=== PATIENT | female | born 1980 | race Caucasian/White ===

== ENCOUNTER 2023-12-01 11:28 | Inpatient (IN) | payer OTHER ==
[2023-12-01] MEDS ORDERED: Ketorolac Tromethamine 30 MG (1 mL) VIAL ONE (11:45)
[2023-12-01] MEDS ORDERED: Morphine 4 MG/ML VIAL ONE ×2 (12:23→16:38)
[2023-12-01] MEDS ORDERED: CEFAZOLIN 2 GM in Sodium Chloride 0.9% 100 ML IVPB SCH (15:00)
[2023-12-01 16:30] LABS: #Eosinphils 0.1 thou/uL (0.0-0.7); #Monocytes 0.9 thou/uL (0.11-0.59); #Neutrophils 7.5 thou/uL (1.40-6.50); %Basophils 0.2 % (0.0-1.0); %Eosinophils 0.6 % (0.0-10.0); %Monocytes 8.2 % (0.0-10.0); %Neutrophils 72.7 % (42.0-75.0); Hemoglobin 11.6 g/dL (12.0-16.0); Mean Corpuscular HGB CONC 33.1 g/dL (32.0-36.0); Mean Corpuscular Hemoglobin 28.9 pg (27.0-31.0); Mean Corpuscular Volume 87.3 fl (78.0-98.0); Mean Platelet Volume 9.3 fL (7.4-10.4); Platelet Count 343 10x3/uL (130-400); RBC Distribution Width 12.4 % (11.5-14.5); Red Blood Cell (RBC) Count 4.01 mill/uL (4.20-5.40); White Blood Cell (WBC) Count 10.3 10x3/uL (4.8-10.8)
[2023-12-01 16:45] LABS: PTT 29.3 sec (22.9-36.1); Prothrombin Time 12.9 sec (12.0-14.7)
[2023-12-01 16:51] LABS: Anion Gap 13 mmol/L (10-20); BUN (Urea Nitrogen) 11 mg/dL (7.0-18.7); Calc. Creatinine Clearance 0 mL/min (70-130); Calcium 9.3 mg/dL (7.8-10.44); Carbon Dioxide 27 mmol/L (22-29); Chloride 101 mmol/L (98-107); Estimated GFR 107; Glucose 95 mg/dL (70-105); Sodium 137 mmol/L (136-145)
[2023-12-01] MEDS ORDERED: Glucagon 1 MG/ML KIT IM PRN (17:47)
[2023-12-01] MEDS ORDERED: Dextrose 50% Abboject 50 ML SYRINGE SLOW IVP PRN (17:47)
[2023-12-01] MEDS ORDERED: Dextrose 5% in Water 1,000 ML IV PRN (17:47)
[2023-12-01 17:55] VITALS: BMI 38.0
[2023-12-01] MEDS ORDERED: Morphine 4 MG/ML VIAL SLOW IVP PRN (17:56)
[2023-12-01] MEDS ORDERED: Ondansetron ODT 4 MG TAB PO PRN (17:59)
[2023-12-01] MEDS ORDERED: Ondansetron PF 4 MG/2 ML Vial IVP PRN ×2 (17:59→18:00)
[2023-12-01] MEDS ORDERED: Ondansetron ODT 4 MG TAB SL PRN (18:00)
[2023-12-01] MEDS: Ibuprofen 200 MG TAB PO SCH (18:31)
[2023-12-01] MEDS: Acetaminophen 500 MG TAB PO SCH (18:32)
[2023-12-01] MEDS: TETANUS, DIPHTHERIA TOX,ADULT (TDVAX) 0.5 ML VIAL IM ONE (18:33)
[2023-12-01] MEDS: traMADol HCl 50 MG TAB PO SCH (18:33)
[2023-12-01] MEDS: Sodium Chloride 0.9% 1,000 ML IV SCH (18:33)
[2023-12-01] MEDS: Famotidine 20 MG TAB PO SCH (20:34)
[2023-12-01] MEDS: Gabapentin 300 MG CAP PO SCH (20:34)
[2023-12-01] MEDS: Morphine 2 MG/ML VIAL SLOW IVP PRN (20:35)
[2023-12-01] MEDS: Lactated Ringer's 1,000 ML IV SCH (23:03)
[2023-12-02] MEDS ORDERED: traMADol HCl 50 MG TAB ONE (11:39)
[2023-12-02] MEDS ORDERED: Acetaminophen 500 MG TAB ONE (11:39)
[2023-12-02] MEDS ORDERED: fentaNYL PF 100 MCG/2 ML SYRINGE ONE (12:09)
[2023-12-02] MEDS ORDERED: PROPOFOL 20 ML ONE (12:09)
[2023-12-02] MEDS ORDERED: Lidocaine 1% PF 5 ML VIAL ONE (12:10)
[2023-12-02] MEDS ORDERED: Sodium Chloride 0.9% 100 ML ONE (12:15)
[2023-12-02] MEDS ORDERED: CEFAZOLIN 2 GM VIAL ONE (12:15)
[2023-12-02] MEDS ORDERED: Midazolam HCl 2 mg/2 ml Vial ONE (12:21)
[2023-12-02] MEDS ORDERED: fentaNYL 50 mcg/mL 1 mL Vial ONE ×3 (12:21→15:43)
[2023-12-02] MEDS ORDERED: Bupivacaine PF 0.5% 30 ML VIAL ONE (12:51)
[2023-12-02] MEDS ORDERED: PHENYLEPHRINE-NS 100 MCG/ML 10 ML SYRINGE ONE (13:14)
[2023-12-02] MEDS ORDERED: Bupivacaine HCl 0.5%/Epinephrine 1:200,000/PF 30 ml Vial ONE (13:14)
[2023-12-02] MEDS ORDERED: ePHEDrine Sulfate 50 MG/10 ML VIAL ONE (13:21)
[2023-12-02] MEDS ORDERED: HYDROmorphone 2 MG/ML VIAL SLOW IVP PRN (13:40)
[2023-12-02] MEDS ORDERED: Ondansetron HCl/PF 4 MG/2 ML Vial IVP PRN (13:40)
[2023-12-02] MEDS ORDERED: Promethazine HCl 25 MG/ML VIAL IM PRN (13:40)
[2023-12-02] MEDS ORDERED: Ketorolac Tromethamine 30 MG (1 mL) VIAL ONE (13:49)
[2023-12-02] MEDS ORDERED: Ondansetron PF 4 MG/2 ML Vial ONE (13:49)
[2023-12-02] MEDS ORDERED: Dexamethasone 4 mg/ml Vial ONE (13:49)
[2023-12-02] MEDS: CEFAZOLIN 2 GM in Sodium Chloride 0.9% 100 ML IVPB SCH (21:50)
[2023-12-03] MEDS: Acetaminophen 500 MG TAB PO SCH (01:15)
[2023-12-03] MEDS: traMADol HCl 50 MG TAB PO PRN (10:14)
[2023-12-03] MEDS ORDERED: Morphine 4 MG/ML VIAL SLOW IVP SCH (14:15)
[2023-12-03] MEDS: Polyethylene Glycol 3350 17 GM Packet PO SCH (14:18)
[2023-12-03] MEDS: Morphine 2 MG/ML VIAL SLOW IVP SCH (14:19)
[2023-12-03] MEDS: Senokot S 8.6-50 MG TAB PO SCH (20:33)
[2023-12-04 08:55] VITALS: TEMP 97.9
[2023-12-04] MEDS: Enoxaparin 40 MG (0.4 mL) SYRINGE SC SCH (09:20)
[2023-12-04] MEDS: Polyethylene Glycol 3350 17 GM Packet PO SCH (09:20)
[2023-12-04 13:16] VITALS: BP 99/66
== END 2023-12-04 13:50 | DRG 494 ==
LOC: ERS 11:28 → EEVIPCON 11:28 → SURG B 15:13
PROVIDERS: ADMIT Specialist; ATTEND Specialist
PROC: 0QSG04Z Reposition Right Tibia with Internal Fixation Device, Open Approach (ICD-10-PCS; principal; 2023-12-02)
DX: S82.851A Displaced trimalleolar fracture of right lower leg, initial encounter for closed fracture (principal); W01.0XXA Fall on same level from slipping, tripping and stumbling without subsequent striking against object, initial encounter; Z79.899 Other long term (current) drug therapy; E78.5 Hyperlipidemia, unspecified; F32.A Depression, unspecified; F41.9 Anxiety disorder, unspecified
CPT/HCPCS: 36415; 80048; 85025; 85610; 85730; 93005; 96374; 96375; 96376; C1713; C1874; G0390; J0665; J1100; J1650; J1885; J2250; J2270; J2272; J2405; J2704; J3010; J3490; J7050; J7120